=== PATIENT | male | born 2000 | race American Indian/Alaskan Native ===

== ENCOUNTER 2019-06-28 12:47 | Emergency (ER) | payer SELFPAY ==
[2019-06-28 13:21] VITALS: BP 130/83
--- NOTE | 2019-06-28 13:22 | Emergency Department Report ---
Chief Complaint: Urogenital-Male Stated Complaint: STD CHECK Time Seen by Provider: 06/28/19 13:19 - HPI History of Present Illness: states he wants to have HIV testing and routine STD testing denies any symptoms at all no n/v, no fever, no abd pain, no testicular edema or pain no PMHx allergy: PCN VSS pt is presenting with a non medical emergency at this time medical screening performed and there is no threat to life or limb at this time pt will be referred to the health department and other clinics MSE screening note: Focused history and physical exam performed. ED Disposition for MSE Clinical Impression: Concern about STD in male without diagnosis Disposition: Z MED SCREENING EXAM-LEFT Is pt being admited?: No Does the pt Need Aspirin: No Condition: Stable Instructions: Sexually Transmitted Diseases (ED), Safe Sex (ED) Additional Instructions: please go to the health department or another clinic for full STD panel. have your partner tested and treated as well. abstain from sexual intercourse. return to the emergency room for any new or worsening symptoms. Referrals: [facility] [Outside] - 2-3 Days [facility] [Outside] - 2-3 Days [facility] [Outside] - 2-3 Days CAROLINA DAMON MD [Staff Physician] - 2-3 Days Time of Disposition: 13:20 Print Language: WALLISIAN
== END 2019-06-28 14:05 | disposition left against medical advice (07) ==
LOC: ED 12:47
DX: Z20.2 Contact with and (suspected) exposure to infections with a predominantly sexual mode of transmission (principal)
CPT/HCPCS: 99281